=== PATIENT | male | born 1955 | race Caucasian/White ===

== ENCOUNTER 2019-11-30 17:17 | Outpatient (CLI) | payer MEDICARE, MEDICAID, SELFPAY ==
[2019-11-30 18:27] LABS: Prostate Specific Antigen 0.406 ng/mL (0-4)
[2019-11-30 18:39] LABS: Alanine Aminotransferase 20 U/L (0-41); Albumin Level 4.5 g/dL (3.5-5.2); Alkaline Phosphatase 87 IU/L (40-130); Blood Urea Nitrogen 14 mg/dL (8-23); Calcium 9.8 mg/dL (8.5-10.5); Carbon Dioxide 21 mmol/L (22-29); Chloride 100 mmol/L (98-107); Cholesterol 153 mg/dL (0-200); Globulin 2.6 g/dL (1.3-4.6); Glomerular Filtration Rate 60.8 mL/min (90-130); Glucose 109 mg/dL (65-115); HDL Cholesterol 30 mg/dL (60-100); LDL Cholesterol Calculated 92 mg/dL (50-129); LDL HDL Ratio 3.07 RATIO (0.00-3.22); Osmolality Calculated 279 mOsm/kg (285-295); Sodium 134 mmol/L (136-145); Total Bilirubin 0.4 mg/dL (0.15-1.2); Total Protein 7.1 g/dL (6.6-8.7); Triglycerides 156 mg/dL (0-150)
[2019-11-30 18:41] LABS: Anion Gap 17.9 (5-19); Potassium 4.9 mmol/L (3.5-5.1)
[2019-11-30 18:42] LABS: Aspartate Amino Transferase 21 U/L (0-40)
[2019-11-30 18:59] LABS: Estmated Average Glucose 105; Hemoglobin A1C 5.3 % (4.0-6.0)
[2019-11-30 23:02] LABS: Creatinine Urine, Random 155 mg/dL (39-259); Microalbum Creatinine Ratio Ur 32 mg/dL (0-20); Microalbumin Random Urine 5 ug/dL (0-20)
== END 2019-11-30 17:18 | disposition home or self-care (01) ==
PROVIDERS: PCP Nurse Practitioner Family; Visit Provider Nurse Practitioner Family
DX: I10 Essential (primary) hypertension (principal)
CPT/HCPCS: 80053; 80061; 82044; 83036; 84153

== ENCOUNTER 2024-12-25 18:10 | Emergency (ER) | payer OTHER, MEDICAID, SELFPAY ==
[2024-12-25 18:14] VITALS: BP 146/82; PULSE 94; RESP 17; TEMP 37; O2SAT 97; BMI 19.5
--- OUTSIDE RECORDS SUMMARY | 2024-12-25 18:14 | XMS_ITS | Clinical Summary ---
Author Organization [facility] Address [address] Campos: Epic Prelude ADT JOAN ROMANO [address] Care Team Providers Care Stock Fitter Name Role Phone Balbina De Los Santos Primary Care Provider Allergies Active Allergy Reactions Criticality Noted Date Comments Penicillins Unknown 10/09/2016 Sulfa (Sulfonamide Antibiotics) Unknown 09/29 Medications aspirin (WILMA) 325 mg tablet Take 325 mg by mouth daily. 10/10/19 17 Active multivit-min/fol ic/vit K/lycop (ONE-A-DAY MEN'S MULTIVITAMIN ORAL) Take 1 Tablet by mouth daily. 10/10/19 17 Active omega-3 fatty acids-fish oil 300-1,000 mg Capsule Take 1 Capsule by mouth daily. 10/10/19 17 Active predniSONE (DELTASONE) 10 mg tabletIndication s:Eustachian tube dysfunction, bilateral Take 3 tablet once per day for 3 days, then 2 tabs once per day for 3 days, then 1 tab once per day for 3 days 18 Tablet 10/26/19 24 Active fluticasone propionate (FLONASE) 50 mcg/spray [place], Suspension nasal inhalerIndicatio ns:Eustachian tube dysfunction, bilateral Administer 2 Sprays in each nostril daily. 16 Gram 1 11/29/19 25 Active atorvastatin (LIPITOR) 40 mg tabletIndication s:History of TIA (transient ischemic attack) and stroke Take 1 Tablet (40 mg) by mouth late in the day. 100 Tablet 3 12/16/19 25 Active clopidogreL (PLAVIX) 75 mg TabletIndication s:History of TIA (transient ischemic attack) and stroke Take 1 Tablet (75 mg) by mouth daily. 90 Tablet 3 12/16/19 25 Active Breztri Aerosphere 160 mcg-9mcg-4.8mcg/ actuation HFA aerosol inhalerIndicatio ns:Panlobular emphysema Take 2 Puffs by inhalation 2 times daily. 10.7 Gram 2 12/16/19 25 Active albuterol sulfate HFA 90 mcg/actuation aerosol inhalerIndicatio ns:Panlobular emphysema Take 2 Puffs by inhalation every 6 hours as needed for Shortness of Breath. 8.5 Gram 1 12/16/19 25 Active atorvastatin (LIPITOR) 40 mg tabletIndication s:History of TIA (transient ischemic attack) and stroke Take 1 Tablet (40 mg) by mouth late in the day. 90 Tablet 3 10/26/19 24 025 Discontin ued(Reord er) fluticasone propionate (FLONASE) 50 mcg/spray [place], Suspension nasal inhalerIndicatio ns:Eustachian tube dysfunction, bilateral Administer 2 Sprays in each nostril daily. 16 Gram 3 10/26/19 24 025 Discontin ued(Reord er) clopidogreL (PLAVIX) 75 mg TabletIndication s:History of TIA (transient ischemic attack) and stroke TAKE ONE TABLET (75 MG) BY MOUTH DAILY. 90 Tablet 08/25/19 25 025 Discontin ued(Reord er) atorvastatin (LIPITOR) 40 mg tabletIndication s:History of TIA (transient ischemic attack) and stroke Take 1 Tablet (40 mg) by mouth late in the day. Take 1 Tablet (40 mg) by mouth late in the day. *NEEDS APPOINTMENT AND LABS FOR MORE REFILLS* 30 Tablet 11/29/19 25 025 Discontin ued(Reord er) clopidogreL (PLAVIX) 75 mg TabletIndication s:History of TIA (transient ischemic attack) and stroke Take 1 Tablet (75 mg) by mouth daily. TAKE ONE TABLET (75 MG) BY MOUTH DAILY. *NEEDS APPOINTMENT FOR MORE REFILLS* 30 Tablet 11/29/19 25 025 Discontin ued(Reord er) Active Problems Problem Noted Date Diagnosed Date History of TIA (transient ischemic attack) and s troke 10/26/2023 Resolved Problems Problem Noted Date Diagnosed Date Resolved Date CVD (cardiovascular disease) 10/26/2023 10/26/2023 Encounters Date Type Department Care Team Description 12/17/2024 Results Follow-Up [facility] [address] [place] [address] May, CBC WITH DIFFERENTIAL, COMPREHENSIVE METABOLIC PANEL 12/15/2024 12:40 PM CDT Office Visit [facility] [address] [place] [address] May, Hospital discharge follow-up (Primary Dx); Atherosclerosis of eek coronary artery of eek heart without angina pectoris; History of TIA (transient ischemic attack) and stroke; Panlobular emphysema; Chronic otitis media with effusion, bilateral; Current every day smoker; Tinnitus, bilateral 12/08/2024 Telephone [facility] [address] [place] [address] May, Information 12/07/2024 Telephone [facility] [address] [place] [address] Balbina De Los Santos, DO possible heart attack 11/28/2024 Refill [facility] [address] [place] [address] May, History of TIA (transient ischemic attack) and stroke; Eustachian tube dysfunction, bilateral; History of NM (myocardial infarction) 11/28/2024 Refill [facility] [address] [place] [address] May, History of TIA (transient ischemic attack) and stroke 11/07/2024 External Device Data STL ABSTRACTION Provider, Abstract 10/31/2024 External Device Data ST[place] ABSTRACTION Provider, Abstract 10/17/2024 External Device Data ST[place] ABSTRACTION Provider, Abstract from Last 3 Months Immunizations Immunization Administration Dates Next Due (ADACEL/BOOSTRIX)(10 YR UP) TDAP VACCINE, 0.5ML, IM 10/09/2016 Social History Tobacco Use Types Packs/Day Years Used Date Smoking Tobacco: Every Day Cigarettes 1 60.8 Started: 1964 Passive Smoke Exposure: Current Smokeless Tobacco: Never Tobacco Cessation:Ready to Q uit: No; Counseling Given: Yes Alcohol Use Standard Drinks/Week Comments No 0 (1 standard drink = 0.6 oz pur e alcohol) Sex and Gender Information Value Date Recorded Sex Assigned at Male 12/31/2023 10:35 AM CDT 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 Gender Identity Male 12/31/2023 10:35 AM CDT Sexual Orientation Straight 12/31/2023 10 :35 AM CDT Last Filed Vital Signs Vital Sign Reading Time Taken Comments Blood Pressure 130/70 12/15/2024 12:48 PM CDT Pulse 105 12/15/2024 12:53 PM CDT Temperature 37 C (98.6 F) 12/15/2024 12:48 PM CDT Respiratory Rate 16 12/15/2024 12:48 PM CDT Oxygen Saturation 98% 12/15/2024 12:48 PM CDT Inhaled Oxygen Concentration - - Weight 63.3 kg (139 lb 9.6 oz) 12/15/2024 12:48 PM CDT Height 180.3 cm (5' 11 ) 12/15/2024 12:48 PM CDT Body Mass Index 19.47 12/15/2024 12:48 PM CDT Plan of Treatment Health Maintenance Due Date Last Done Comments FIT/ DNA Q 3 YEARS (AUTO ORDER) 1972 FIT/FOBT Q 1 YEAR (AUTO ORDER) 1972 FLEX SIG/CT COLONOGRAPHY Q 5 YEARS (AUTO ORDER) 1972 PNEUMOCOCCAL VACCINE 50+ YEA RS (1 of 2 - PCV) 1973 COLORECTAL CANCER SCREENING (AUTO ORDER) 1999 COLORECTAL SCREENING 1999 Colorectal Cancer Screening (AUTO ORDER) 1999 Colorectal Cancer Screening 1999 FIT-DNA Q 3 years 1999 FIT/FOBT Q 1 year 1999 Flex Sig/CT Colonography Q 5 years 1999 Lung Cancer Screening 2004 RSV VACCINE (60+ or ) (1 - Risk 50-74 years 1-dose series) 2004 ZOSTER VACCINE (1 of 2) 2004 Abdominal Aortic Aneurysm (AAA) Screening 2019 Medicare Advantage ([place]) Prev entative Visit/Annual Wellness Visit 2024 11/30/2023 INFLUENZA VACCINE (#1) 2024 COVID-19 Vaccine (3 - season) 2024, 10/03/2020 DTAP/TDAP/TD VACCINES (2 - Td or Tdap) 10/09/2026 Procedures Procedure Name Priority Date/Time Associated Diagnosis Comments COMPREHENSIVE METABOLIC PANEL Routine 12/15/2024 1:25 PM CDT Hospital discharge follow-up Atherosclerosis of eek coronary artery of eek heart without angina pectoris CBC WITH DIFFERENTIAL Routine 12/15/2024 1:25 PM CDT Hospital discharge follow-up Atherosclerosis of eek coronary artery of eek heart without angina pectoris from Last 3 Months Results * (ABNORMAL) CBC WITH DIFFERENTIAL (12/15/2024 1:25 PM CDT) WBC 9.0 3.8 - 10.8 Thousand/u L [facility] RBC 5.27 4.20 - 5.80 Million/uL [facility] HEMOGLOBIN 17.2(H) 13.2 - 17.1 g/dL [facility] HEMATOCRIT 52.6(H) 38.5 - 50.0 % [facility] MCV 99.8 80.0 - 100.0 fL [facility] MCH 32.6 27.0 - 33.0 pg [facility] MCHC 32.7 32.0 - 36.0 g/dL [facility] Comment: For adults, a slight decrease in the calculated MCHC value (in the range of 30 to 32 g/dL) is most likely not clinically significant; however, it should be interpreted with caution in correlation with other red cell parameters and the patient's clinical condition. RDW 12.3 11.0 - 15.0 % [facility] PLATELETS 208 140 - 400 Thousand/u L [facility] MPV 10.6 7.5 - 12.5 fL [facility] NEUTROPHIL ABSOLUTE 5,490 1,500 - 7,800 cells/uL [facility] LYMPHOCYTE ABSOLUTE 2,268 850 - 3,900 cells/uL [facility] MONOCYTE ABSOLUTE 792 200 - 950 cells/uL [facility] EOSINOPHIL ABSOLUTE 351 15 - 500 cells/uL [facility] BASOPHILS ABSOLUTE 99 0 - 200 cells/uL [facility] NEUTROPHIL 61 % [facility] LYMPHOCYTES 25.2 % [facility] MONOCYTE 8.8 % [facility] EOSINOPHILS 3.9 % [facility] BASOPHILS 1.1 % [facility] Comment: Test Performed at: [facility] [address] [place] [address] Dave Russ MD Blood 12/15/2024 1:25 PM CDT 12/15/2024 1:26 PM CDT May Darling [facility] HEMATOLOGY ORDERABLES Final Resu lt [facility] [phone] [facility] [address] [place] [address] * COMPREHENSIVE METABOLIC PANEL (12/15/2024 1:25 PM CDT) GLUCOSE 95 65 - 99 mg/dL [facility] Comment: Fasting reference interval BUN 14 7 - 25 mg/dL [facility] CREATININE 1.08 0.70 - 1.28 mg/dL [facility] GFR 74 > OR = 60 mL/min/1. 73m2 [facility] BUN/CREAT RATIO SEE NOTE: 6 - 22 (calc) [facility] Comment: Not Reported: BUN and Creatinine are within reference range. SODIUM 138 135 - 146 mmol/L [facility] POTASSIUM 4.4 3.5 - 5.3 mmol/L [facility] CHLORIDE 103 98 - 110 mmol/L [facility] CO2 27 20 - 32 mmol/L [facility] CALCIUM 9.7 8.6 - 10.3 mg/dL [facility] TOTAL PROTEIN 7.3 6.1 - 8.1 g/dL [facility] ALBUMIN 4.4 3.6 - 5.1 g/dL [facility] GLOBULIN 2.9 1.9 - 3.7 g/dL (calc) [facility] ALBUMIN/GLOBULIN RATIO 1.5 1.0 - 2.5 (calc) [facility] BILIRUBIN TOTAL 0.6 0.2 - 1.2 mg/dL [facility] ALKALINE PHOSPHATASE 72 35 - 144 U/L [facility] AST 17 10 - 35 U/L [facility] ALT 25 9 - 46 U/L [facility] Comment: Test Performed at: [facility] [address] [address] Dave Russ MD Blood 12/15/2024 1:25 PM CDT 12/15/2024 1:26 PM CDT May [facility] CHEMISTRY ORDERABLES Final Resul t [facility] [phone] [facility] [address] [address] from Last 3 Months Insurance * Guarantor: Kris Jimenez Account Type Relation to Patient Date of Phone Billing Address Personal/Family Self 1955 [address] [facility] [address] [place] [address] MEDICAID [place] [facility] DUAL COMPLETE HMO DSNP [facility] [id number] Care Teams Stock Fitter Relationship Specialty Start Date End Date Balbina De Los Santos DO [address] [place] [address] PCP - General Family Practice 10/27/23
--- OUTSIDE RECORDS SUMMARY | 2024-12-25 18:14 | XMS_ITS | Encounter Summary ---
Author Organization [facility] Address [address] [place] [address] Care Team Providers Care Collar Setter Overlock Name Role Phone Balbina De Los Santos DO Primary Care Provider [phone] Encounter Details Date Type Department Care Team (Latest Contact Info) Description 12/17/2024 Results Follow-Up [facility] [place] [address] [facility] [place] [address] Darlingmay, HEAD PORTER [address] 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
--- NOTE | 2024-12-25 18:30 | ECG_ITS ---
[facility] Test Date: 2024-12-25 Pat Name: Kris Jimenez Department: Room: Gender: Male Backup Operator: : 1955 Requested By: Kayli Waters Order Number: [id number] Reading MD: Measurements Intervals [place] Rate: 87 P: 83 IL: 137 QRS: 1 QRSD: 81 T: 73 QT: 356 QTc: 429 Interpretive Statements SINUS RHYTHM No previous ECG available for comparison [id number]
--- NOTE | 2024-12-25 18:30 | ECG_ITS ---
[facility] Test Date: 2024-12-25 Pat Name: Kris Jimenez Department: Room: Gender: Male Aligning Checker: : 1955 Requested By: Kayli Waters Order Number: [id number] Reading MD: Measurements Intervals [place] Rate: 87 P: 83 OR: 137 QRS: 1 QRSD: 81 T: 73 QT: 356 QTc: 429 Interpretive Statements SINUS RHYTHM No previous ECG available for comparison [email or web address]
--- NOTE | 2024-12-25 18:43 | XRR_ITS ---
PROCEDURE INFORMATION: Exam: XR Chest Exam date and time: 12/25/2024 7:06 PM Age: 69 years old Clinical indication: Shortness of breath; Prior surgery; Surgery date: <1 month; Surgery type: Coronary stents (most recent 12/09/2024), prior history of endarterectomy; Additional info: SOB TECHNIQUE: Imaging protocol: Radiologic exam of the chest. Views: 1 view. COMPARISON: CT chest [place] [id number] 12/07/2024 4:14 PM FINDINGS: Lungs: Hyperinflated lungs compatible with patient's history of COPD. Pleural spaces: Unremarkable. No pleural effusion. No pneumothorax. Heart/Mediastinum: Unremarkable. No cardiomegaly. Bones/joints: Unremarkable. Other findings: No acute intrathoracic abnormality. XR/XR chest 1V portable [id number] IMPRESSION: 1. No acute intrathoracic abnormality. 2. Hyperinflated lungs compatible with patient's history of COPD.
--- NOTE | 2024-12-25 18:47 | W.ED.GENADLT ---
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 Patient states that overall he just does not feel well. He was told that he could resume normal activities after 3 to 5 days but feels that maybe he has overdone it . He complains of feeling hot and cold . No documented fever. He feels like he intermittently has some numbness to his fingertips. He describes a pressure to the left side of his chest that he rates at a 1/10. His main complaint seems to be dyspnea with exertion. This complaint was present prior to his recent cardiac cath. He does have COPD and smokes daily. He has not had any worsening cough. Patient was admitted here approximately 2 weeks ago with a complaint of chest pain and underwent abnormal cardiac stress testing thus underwent cardiac cath. Conclusions of this procedure listed below: Conclusions 1. Critical proximal RCA stenosis status post PCI with 1 stent. Balloon angioplasty of severe mid LAD ISR. Balloon angioplasty of distal to apical LAD.. 2. Mid Left Anterior Descending was treated with a Balloon. 3. Distal Left Anterior Descending was treated with a Balloon. 4. Proximal Right Coronary Artery was treated with a Balloon, Drug Eluting Stent, and Balloon. Onset (ago): day(s) Severity: moderate Relieving factors: none Exacerbating factors: other (Exertion) Associated symptoms: Reports chest pain and dyspnea; Deny headache(s), nausea, rash, palpitations or syncope Treatments prior to arrival: none Related Data Home Medications ?Medication ?Instructions ?Recorded ?Confirmed aspirin 81 mg tablet,delayed 81 mg PO DAILY 08/29/20 12/07/24 release (Adult Aspirin Regimen) [id number]-irrtrmdr-[id number] tablet 1 tab PO DAILY 08/29/20 12/07/24 atorvastatin 40 mg tablet 40 mg PO DAILY 12/07/24 12/07/24 clopidogrel 75 mg tablet 75 mg PO DAILY 12/07/24 12/07/24 fluticasone propionate 50 1 spray intranasal BID 12/07/24 12/07/24 mcg/actuation nasal spray,suspension omega 9-div-ggh-fish oil 1,000 mg 1 cap PO DAILY 12/07/24 12/07/24 (120 mg-180 mg) capsule (Fish Oil) Allergies Allergy/AdvReac Type Severity Reaction Status Date / Time bee pollen Allergy Unknown Verified 12/07/24 16:13 Penicillins Allergy unknown Verified 08/29/20 08:40 Sulfa (Sulfonamide Allergy unknown Verified 08/29/20 08:40 Antibiotics) Review of Systems Const: Reports: chills and fatigue; Denies: fever(s), body aches, change in appetite or change in weight Eyes: Denies: change in vision, blurry vision, photophobia, floaters or seeing flashes ENMT: Denies: throat pain, odynophagia, nasal discharge, nasal congestion or sinus pain Card: Reports: chest pain and dyspnea on exertion; Denies: palpitations, irregular heart rhythm, edema, swelling of feet/ankles, syncope, leg pain with exertion or acrocyanosis Resp: Reports: dyspnea; Denies: pain on inspiration or chest congestion GI: Denies: abdominal pain, nausea or change in bowel habits : Denies: flank pain, dysuria or hematuria Musc: Denies: neck pain, back pain, extremity pain, extremity swelling, joint pain, joint swelling or joint redness Skin/Breast: Denies: rash Neuro: Denies: headache(s), numbness in extremities, weakness in extremities, sensory changes or dizziness PFS ED PFSH: Medical History Atherosclerotic heart disease [place] coronary artery w/angina pectoris Hypertension Coronary artery disease CVA (cerebral vascular accident) Surgical History H/O endarterectomy H/O shoulder surgery Family History Mother Black lung disease Father Suicide Social History Smoking and tobacco/nicotine status: current every day tobacco/nicotine user Alcohol intake: never Substance/Drug Use: never Physical Exam Const: COMMON NORMALS: no acute distress, patient oriented x3, no limitations and alert GENERAL APPEARANCE: cooperative ORIENTATION/CONSCIOUSNESS: Yes awake, Yes oriented to person, Yes oriented to place and Yes oriented to time Neck/C-Spine: COMMON NORMALS: no JVD Resp: COMMON NORMALS: normal respiratory effort AUSCULTATION: rhonchi (chronic smoker-improves somewhat with coughing) Cardio: COMMON NORMALS: no JVD, regular rate and regular rhythm RATE: regular rate RHYTHM: regular rhythm GI: COMMON NORMALS: Normal to inspection, nondistended, normoactive bowel sounds present, Soft to palpation and non-tender PALPATION: Yes Soft to palpation Extremity: COMMON NORMALS: normal to inspection, capillary refill normal, no clubbing, cyanosis or edema, no calf tenderness and no pedal edema GENERAL: Yes normal exam except as noted Neuro: BENNY COMA SCALE: document GCS findings Benny coma scale eye opening: Spontaneous Benny coma scale verbal response: Orientated [place] coma scale motor response: [place]bey commands Benny coma scale total score: 15 COMMON NORMALS: patient oriented x3, moves all extremities, no focal motor deficits and no sensory deficits noted SENSORIUM/ORIENTATION: Yes alert, Yes oriented to person, Yes oriented to place and Yes oriented to time Skin: COMMON NORMALS: no rashes or lesions noted GENERAL SKIN EXAM: no rashes or lesions noted Course Vital Signs: Vital signs: Vital Signs Temperature 98.6 F 12/25/24 18:14 Pulse Rate 91 12/25/24 20:11 Respiratory Rate 17 12/25/24 18:14 Blood Pressure 140/83 12/25/24 20:11 Pulse Oximetry 96 12/25/24 20:11 Oxygen Delivery Me thod Room Air 12/25/24 20:11 MDM - General Adult Medical Decision Making Patient is not having any ongoing/active chest pain. Vital signs are stable. He is 2 weeks status post cardiac catheterization with stent placement. His main concern seems to be dyspnea with exertion. This was present prior to catheterization. He does have COPD and is an everyday smoker. He is satting here normally on room air. His CXR showing no acute intrathoracic abnormalities. Lungs compatible with known history of COPD. Blood work including CBC, CMP, troponin, BNP are unremarkable. EKG is nonischemic. Patient has had symptoms for several days now. I do not feel we need to repeat EKG/troponin at this time. Recommend he follow-up with cardiology as scheduled. Return to ED precautions discussed. Differential Diagnosis DDx includes: stent restenosis, ACS, COPD exacerbation, pneumonia, CHF, myocarditis, pulmonary emboli, viral URI, pleural effusion, cardic tamponade, among others Medical Records I reviewed the patient's medical records. Lab Data I reviewed the patient's lab results. 12/25/24 01:03 12/25/24 19:03 Radiology Impressions Chest X-Ray 12/25/24 18:43 IMPRESSION: 1. No acute intrathoracic abnormality. 2. Hyperinflated lungs compatible with patient's history of COPD. Laboratory Results WBC 9.63 10^3/uL (3.29-11.43) 12/25/24 01:03 RBC 5.13 10^6/uL (3.85-5.65) 12/25/24 01:03 Hgb 16.50 g/dL (11.27-16.99) 12/25/24 01:03 Hct 48.7 % (37-53) 12/25/24 01:03 MCV 94.9 fl (82-101) 12/25/24 01:03 MCH 32.2 pg (27-33) 12/25/24 01:03 MCHC 33.9 g/dL (30-55) 12/25/24 01:03 RDW 13.8 % (12.1-15.1) 12/25/24 01:03 Plt Count 186 10^3/cmm (157-399) 12/25/24 01:03 MPV 10.0 fL (7.4-10.4) 12/25/24 01:03 Neut % (Auto) 67.5 % 12/25/24 01:03 Lymph % (Auto) 16.9 % 12/25/24 01:03 Yates % (Auto) 10.5 % 12/25/24 01:03 Eos % (Auto) 4.0 % 12/25/24 01:03 Baso % (Auto) 0.8 % 12/25/24 01:03 Neut # (Auto) 6.49 10^3/uL (1.8-7.7) 12/25/24 01:03 Lymph # (Auto) 1.6 10^3/uL (0.8-4.8) 12/25/24 01:03 Yates # (Auto) 1.0 10^3/uL (0.2-0.9) H 12/25/24 01:03 Eos # (Auto) 0.4 10^3/uL (0.0-0.8) 12/25/24 01:03 Baso # (Auto) 0.1 10^3/uL (0.0-0.1) 12/25/24 01:03 Nucleated RBC % (auto) 0 % 12/25/24 01:03 Nucleated RBCs # 0.0 /100WBC 12/25/24 01:03 Sodium 138 mmol/L (136-145) 12/25/24 19:03 Potassium 4.0 mmol/L (3.5-5.1) 12/25/24 19:03 Chloride 102 mmol/L (98-107) 12/25/24 19:03 Carbon Dioxide 24 mmol/L (22-29) 12/25/24 19:03 Anion Gap 16.0 (5-19) 12/25/24 19:03 BUN 10 mg/dL (8-23) 12/25/24 19:03 Creatinine 0.9 mg/dL (0.7-1.2) 12/25/24 19:03 GFR Calculation 83.4 mL/min (90-130) L 12/25/24 19:03 Glucose 93 mg/dL (65-115) 12/25/24 19:03 Calculated Osmolality 285 mOsm/kg (285-295) 12/25/24 19:03 Calcium 9.1 mg/dL (8.5-10.5) 12/25/24 19:03 Total Bilirubin 0.7 mg/dL (0.15-1.2) 12/25/24 19:03 AST 15 U/L (0-40) 12/25/24 19:03 ALT 18 U/L (0-41) 12/25/24 19:03 Alkaline Phosphatase 85 U/L (40-130) 12/25/24 19:03 Troponin T Baseline 9 ng/L (0-15) 12/25/24 19:03 NT-Pro-B Natriuret Pep 45 pg/mL (0-125) 12/25/24 19:03 Total Protein 6.7 g/dL (6.6-8.7) 12/25/24 19:03 Albumin 4.1 g/dL (3.5-5.2) 12/25/24 19:03 Globulin 2.6 g/dL (1.3-4.6) 12/25/24 19:03 Urine Color Yellow (Yellow) 12/25/24 19:01 Urine Appearance Clear (CLEAR) 12/25/24 19:01 Urine pH 6.0 (5-7) 12/25/24 19:01 Ur Specific [place] 1.010 (1.005-1.030) 12/25/24 19:01 Urine Protein Negative (Negative) 12/25/24 19:01 Urine Glucose (UA) Negative (Normal) 12/25/24 19: Urine Ketones Negative (Negative) 12/25/24 19:01 Urine Blood Negative (Negative) 12/25/24 19:01 Urine Nitrate Negative (Negative) 12/25/24 19: Urine Bilirubin Negative (Negative) 12/25/24 19:01 Urine Urobilinogen 1.0 mg/dL (Negative) 12/25/24 19:01 Ur Leukocyte Esterase Negative (Negative) 12/25/24 19:01 Urine RBC 0-2 /hpf (0-2) 12/25/24 19:01 Urine WBC 0-5 /hpf (0-5) 12/25/24 19:01 Ur Squamous Epith Cells 0-5 /hpf (0-5) 12/25/24 19:01 Amorphous Sediment Not Reportable 12/25/24 19:01 Urine Bacteria None seen /hpf (NONE) 12/25/24 19:01 Hyaline Casts 0.40 /lpf 12/25/24 19:01 All radiology interpretation(s) finalized by discharge EKG Data EKG 1: EKG interpretation date: 12/25/24 EKG interpretation time: 18:30 Prior EKG tracings: available for review Interpretation: Sinus rhythm Rate [address] elevation or depression changes noted Normal QRS interval Also reviewed with Dr. Swanson Computer generated interpretation: Chest X-Ray 12/25/24 18:43 IMPRESSION: 1. No acute intrathoracic abnormality. 2. Hyperinflated lungs compatible with patient's history of COPD. Discharge Plan Discharge Patient Disposition: Home Clinical Impression: Dyspnea on exertion Condition: Stable Prescriptions: No Action aspirin [Adult Aspirin Regimen] 81 mg tablet,delayed release (DR/EC) 81 mg PO DAILY [id number]-xpcgjg Tablet 1 tab PO DAILY atorvastatin 40 mg tablet 40 mg PO DAILY clopidogrel 75 mg tablet 75 mg PO DAILY fluticasone propionate 50 mcg/actuation spray,suspension 1 spray INTRANASAL BID omega 8-zwu-sku-fish oil [Fish Oil] 1,000 (120-180) mg Capsule 1 cap PO DAILY Discharge Orders: Discharge ED (Routine); Ordered 12/25/24 Ordered By: Kayli Waters Patient Instructions: Patient Portal & Mal[place] Instructions Activity Restrictions/Additional Instructions: As we discussed, please follow-up with cardiology as scheduled. You need to return the emergency department for onset of severe chest pain, shortness of breath, difficulty breathing, or any other concerns you may have. 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
[2024-12-25 19:08] VITALS: BP 126/90; PULSE 95; O2SAT 96
[2024-12-25 19:22] LABS: Hematocrit 48.7 % (37-53); Hemoglobin 16.50 g/dL (11.27-16.99); Mean Corpuscular HGB Conc 33.9 g/dL (30-55); Mean Corpuscular Hemoglobin 32.2 pg (27-33); Mean Corpuscular Volume 94.9 fl (82-101); Nucleated Red Blood Cells % 0 %; Platelet Count 186 10^3/cmm (157-399); Red Blood Count 5.13 10^6/uL (3.85-5.65); White Blood Count 9.63 10^3/uL (3.29-11.43)
[2024-12-25 19:22] LABS: Glucose Urine UA Negative (Normal); Nitrate Urine Negative (Negative); Specific Gravity, Urine 1.010 (1.005-1.030)
[2024-12-25 19:27] LABS: Add Urine Microscopic? YES
[2024-12-25 19:57] LABS: Troponin(5th) Baseline 9 ng/L (0-15)
[2024-12-25 20:05] LABS: Alanine Aminotransferase 18 U/L (0-41); Albumin Level 4.1 g/dL (3.5-5.2); Alkaline Phosphatase 85 U/L (40-130); Anion Gap 16.0 (5-19); Aspartate Amino Transferase 15 U/L (0-40); Blood Urea Nitrogen 10 mg/dL (8-23); Calcium 9.1 mg/dL (8.5-10.5); Carbon Dioxide 24 mmol/L (22-29); Chloride 102 mmol/L (98-107); Creatinine Clr Calc Pharmacy 76.2451; Globulin 2.6 g/dL (1.3-4.6); Glucose 93 mg/dL (65-115); NT Pro B Type Natriuretic Pept 45 pg/mL (0-125); Osmolality Calculated 285 mOsm/kg (285-295); Potassium 4.0 mmol/L (3.5-5.1); Sodium 138 mmol/L (136-145); Total Protein 6.7 g/dL (6.6-8.7)
[2024-12-25 20:11] VITALS: BP 140/83; PULSE 91; O2SAT 96
[2024-12-25 20:44] VITALS: BP 153/87; PULSE 98; O2SAT 94
== END 2024-12-25 21:03 | disposition home or self-care (01) ==
PROVIDERS: Emergency Provider Physician Assistant
DX: R06.09 Other forms of dyspnea (principal); Z79.82 Long term (current) use of aspirin; Z79.02 Long term (current) use of antithrombotics/antiplatelets; Z72.0 Tobacco use; I25.119 Atherosclerotic heart disease of native coronary artery with unspecified angina pectoris; I25.10 Atherosclerotic heart disease of native coronary artery without angina pectoris; Z86.73 Personal history of transient ischemic attack (TIA), and cerebral infarction without residual deficits
CPT/HCPCS: 36415; 71045; 80053; 81001; 83880; 84484; 85025; 93005; 99285